=== PATIENT | female | born 1965 | race Caucasian/White ===

== ENCOUNTER 2017-02-20 16:50 | Emergency (ER) | payer BC ==
[~2017-02-20] VITALS: Ht 157.5 cm; Wt 96.3 kg
[2017-02-20 16:54] VITALS: TEMP 36.7; Ht 157.5 cm; Wt 96.3 kg
[2017-02-20 17:02] VITALS: O2SAT 96
--- NOTE | 2017-02-20 17:25 | DIAGNOSTIC IMAGING REPORT ---
CHEST ONE VIEW PORTABLE HISTORY: 51 years-old Female acute Fever/Sepsis COMPARISON: None available TECHNIQUE: Portable upright AP view of the chest FINDINGS: Cardiac silhouette is within normal limits. There is no pneumothorax, pleural effusion or focal airspace consolidation. There is mild right hemidiaphragmatic elevation. The bones are grossly intact. IMPRESSION: No acute cardiopulmonary process. The above report was generated using voice recognition software. It may contain grammatical, syntax or spelling errors. Electronically signed by: Ten Reynolds M.D. 02/20/2017 5:24 PM Dictated Date/Time: 02/20/2017 5:23 PM
[2017-02-20 17:31] LABS: BASO % 0.3 %; BASO ABS # 0.03 K/uL (0-0.2); COMPLETE YES; EOS % 1.6 %; HEMATOCRIT 40.4 % (37-47); IG% 0.2 %; LYMPH % 28.8 %; MEAN CELL VOLUME 91.6 fL (80-100); MEAN CORPUSCULAR HEMOGLOBIN 31.5 pg (25-34); MEAN CORPUSCULAR HGB CONC 34.4 g/dl (32-36); MEAN PLATELET VOLUME 9.5 fL (7.4-10.4); MONO % 8.8 %; NEUT % 60.3 %; PLATELET COUNT 259 K/uL (130-400); RED BLOOD COUNT 4.41 M/uL (4.2-5.4); WHITE BLOOD COUNT 9.02 K/uL (4.8-10.8)
[2017-02-20] MEDS ORDERED: POTA10CA28 PO (17:48)
[2017-02-20] MEDS ORDERED: BUME1TAB PO (17:48)
[2017-02-20] MEDS ORDERED: METO25TA3 PO (17:48)
[2017-02-20] MEDS ORDERED: RIVA1TAB4 PO (17:48)
[2017-02-20] MEDS ORDERED: ESCI1TAB10 PO (17:48)
[2017-02-20] MEDS ORDERED: DOXY-300 PO (17:48)
[2017-02-20 17:53] LABS: ALT/SGPT 15 U/L (12-78); BLOOD UREA NITROGEN 18 mg/dl (7-18); BUN/CREATININE RATIO 17.6 (10-20); CALCIUM 9.5 mg/dl (8.5-10.1); CARBON DIOXIDE 29 mmol/L (21-32); CHLORIDE 103 mmol/L (98-107); GLUCOSE 87 mg/dl (70-99); POTASSIUM 3.1 mmol/L (3.5-5.1); SODIUM 139 mmol/L (136-145)
[2017-02-20 17:58] LABS: ALKALINE PHOSPHATASE 113 U/L (45-117); AST/SGOT 13 U/L (15-37); CKMB/CK RATIO 1.1 (0-3.0)
[2017-02-20 18:01] LABS: PARTIAL THROMBOPLASTIN RATIO 1.1; PROTHROMBIN TIME (PATIENT) 10.5 SECONDS (9.0-12.0)
--- NOTE | 2017-02-20 18:27 | EMERGENCY ROOM VISIT NOTE ---
History Report prepared by Valdez: Basil Conway Under the Supervision of: Dr. Sincere Conklin D.O. First contact with patient: 17:02 Chief Complaint: CHEST PAIN Stated Complaint: CHEST PAIN, LEFT SIDE, HX OF CLOTS History of Present Illness The patient is a 51 year old female who presents to the Emergency Room with complaints of left-sided pressure-like chest pain that began 2 hours ago. She rates her pain a 9/10 in severity. 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 She states that they told her the only way to fix it would be to have open heart surgery, which the patient declined. This makes her short of breath and unable to exceptionally exert herself. Today, the patient's chest pain began with pain in her left arm and left neck as well. She notes hot flashes and shortness of breath at this time. She denies any fevers. This has happened to the patient before. She has a past medical history of factor 5 clotting disorder which caused blood clots in her lung and left leg, so she is currently on Xarelto. Source of History: patient Onset: 2 hours ago Position: chest (left) Symptom Intensity: 9/10 Quality: pressure Timing: constant Associated Symptoms: + neck pain, + SOB, No fevers Note: She is having left arm pain and hot flashes as well. Review of Systems See HPI for pertinent positives & negatives. A total of 10 systems reviewed and were otherwise negative. Past Medical & Surgical Medical Problems: (1) Factor 5 Leiden mutation, heterozygous (2) Myocardial bridge Family History Omitted secondary to the patient's age. Social History Smoking Status: Never Smoker Smokeless Tobacco Use: No Drug Use: none Marital Status: Housing Status: lives with significant other Occupation Status: employed Current/Historical Medications Scheduled Bumetanide (Bumex), 1.5 MG PO QAM Doxycycline (Monohydrate) (Doxycycline), 100 MG PO BID Escitalopram Oxalate (Lexapro), 20 MG PO QAM Metoprolol Succinate (Toprol Xl), 25 MG PO QPM Potassium Chloride (Micro-K Ext Rel), 10 MEQ PO DAILY Rivaroxaban (Xarelto), 20 MG PO QPM Allergies Coded Allergies: Amoxicillin (Unverified Allergy, Unknown, RASH, 02/20/17) Penicillins (Unverified Allergy, Unknown, RASH, 02/20/17) Physical Exam Vital Signs Date Time Temp Pulse Resp B/P (MAP) Pulse Ox O2 Delivery O2 Flow Rate FiO2 02/20/17 17:12 96 Room Air 02/20/17 17:12 78 02/20/17 17:02 96 Room Air 02/20/17 16:54 36.7 78 17 157/90 95 Room Air Physical Exam CONSTITUTIONAL/VITAL SIGNS: Reviewed / noted above. GENERAL: Non-toxic in appearance. INTEGUMENTARY: Warm, dry, and [place]. HEAD: Normocephalic. EYES: without scleral icterus or trauma. ENT/OROPHARYNX: clear and moist. LYMPHADENOPATHY/NECK: Is supple without lymphadenopathy or meningismus. RESPIRATORY: Lungs clear and equal. CARDIOVASCULAR: Regular rate and rhythm. GI/ABDOMEN: Soft and nontender. No organomegaly or pulsatile mass. No rebound or guarding. Normal bowel sounds. EXTREMITIES: Warm and well perfused. BACK: No CVA tenderness. NEUROLOGICAL: Intact without focal deficits. PSYCHIATRIC: normal affect. MUSCULOSKELETAL: Normally developed with good muscle tone. Medical Decision & Procedures ER Provider Diagnostic Interpretation: Radiology results as stated below per my review and radiologist interpretation: CHEST ONE VIEW PORTABLE HISTORY: 51 years-old Female acute Fever/Sepsis COMPARISON: None available TECHNIQUE: Portable upright AP view of the chest FINDINGS: Cardiac silhouette is within normal limits. There is no pneumothorax, pleural effusion or focal airspace consolidation. There is mild right hemidiaphragmatic elevation. The bones are grossly intact. IMPRESSION: No acute cardiopulmonary process. The above report was generated using voice recognition software. It may contain grammatical, syntax or spelling errors. Electronically signed by: Ten Reynolds M.D. 02/20/2017 5:24 PM Dictated Date/Time: 02/20/2017 5:23 PM Laboratory Results 02/20/17 17:20 Red Blood Count 4.41, Mean Corpuscular Volume 91.6, Mean Corpuscular Hemoglobin 31.5, Mean Corpuscular Hemoglobin Concent 34.4, Mean Platelet Volume 9.5, Neutrophils (%) (Auto) 60.3, Lymphocytes (%) (Auto) 28.8, Monocytes (%) (Auto) 8.8, Eosinophils (%) (Auto) 1.6, Basophils (%) (Auto) 0.3, Neutrophils # (Auto) 5.44, Lymphocytes # (Auto) 2.60, Monocytes # (Auto) 0.79, Eosinophils # (Auto) 0.14, Basophils # (Auto) 0.03 02/20/17 17:20 Test 02/20/17 17:20 White Blood Count 9.02 K/uL (4.8-10.8) Red Blood Count 4.41 M/uL (4.2-5.4) Hemoglobin 13.9 g/dL (12.0-16.0) Hematocrit 40.4 % (37-47) Mean Corpuscular Volume 91.6 fL (80-100) Mean Corpuscular Hemoglobin 31.5 pg (25-34) Mean Corpuscular Hemoglobin Concent 34.4 g/dl (32-36) Platelet Count 259 K/uL (130-400) Mean Platelet Volume 9.5 fL (7.4-10.4) Neutrophils (%) (Auto) 60.3 % Lymphocytes (%) (Auto) 28.8 % Monocytes (%) (Auto) 8.8 % Eosinophils (%) (Auto) 1.6 % Basophils (%) (Auto) 0.3 % Neutrophils # (Auto) 5.44 K/uL (1.4-6.5) Lymphocytes # (Auto) 2.60 K/uL (1.2-3.4) Monocytes # (Auto) 0.79 K/uL (0.11-0.59) Eosinophils # (Auto) 0.14 K/uL (0-0.5) Basophils # (Auto) 0.03 K/uL (0-0.2) RDW Standard Deviation 42.7 fL (36.4-46.3) RDW Coefficient of Variation 12.9 % (11.5-14.5) Immature Granulocyte % (Auto) 0.2 % Immature Granulocyte # (Auto) 0.02 K/uL (0.00-0.02) Prothrombin Time 10.5 SECONDS (9.0-12.0) Prothromb Time International Ratio 1.0 (0.9-1.1) Activated Partial Thromboplast Time 28.2 SECONDS (21.0-31.0) Partial Thromboplastin Ratio 1.1 D-Dimer 390 ug/L FEU (0-500) Anion Gap 7.0 mmol/L (3-11) Est Creatinine Clear Calc Drug Dose 72.1 ml/min Estimated GFR () 75.5 Estimated GFR (Non- 65.2 BUN/Creatinine Ratio 17.6 (10-20) Calcium Level 9.5 mg/dl (8.5-10.1) Total Bilirubin 0.2 mg/dl (0.2-1) Direct Bilirubin < 0.1 mg/dl (0-0.2) Aspartate Amino Transf (AST/SGOT) 13 U/L (15-37) Alanine Aminotransferase (ALT/SGPT) 15 U/L (12-78) Alkaline Phosphatase 113 U/L (45-117) Total Creatine Kinase 103 U/L (26-192) Creatine Kinase MB 1.1 ng/ml (0.5-3.6) Creatine Kinase MB Ratio 1.1 (0-3.0) Troponin I < 0.015 ng/ml (0-0.045) Total Protein 7.5 gm/dl (6.4-8.2) Albumin 3.3 gm/dl (3.4-5.0) Lipase 108 U/L (73-393) Laboratory results as stated above per my review. ECG Indication: chest pain Rate (beats per minute): 77 Rhythm: normal sinus Findings: no acute ischemic change, no ectopy ED Course 1702: Previous medical records were reviewed. The patient was evaluated in room B12B. A complete history and physical examination was performed. 1830: On reevaluation, the patient is resting. I discussed the results and findings with the patient. She verbalized agreement of the treatment plan. She was discharged home. Medical Decision Differentials considered include acute myocardial infarction, acute coronary syndrome, myocarditis, pericarditis, pericardial effusions /tamponade, esophageal perforation, thoracic aortic dissection, pulmonary embolism, pneumonia, pneumothorax, pancreatitis, shingles, acute cholecystitis, and perforated abdominal viscus. This is a 51-year-old female who presents to the ED with a chief complaint of left upper chest pain. The patient states that her left arm also feels a little weak. Further details noted above. 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 She reported some associated shortness of breath. Her vital signs are stable. Her exam is normal. Chest x-ray did not show acute disease. CBC, complete metabolic panel, troponin, lipase, d-dimer were all unremarkable/normal. The patient was told the results of the test. She is felt to be stable for discharge and outpatient follow-up. Medication Reconcilliation Current Medication List: was personally reviewed by me Blood Pressure Screening Patient's blood pressure: Elevated blood pressure Blood pressure disposition: Referred to PCP Impression Primary Impression: Non-cardiac chest pain Scribe Attestation The scribe's documentation has been prepared under my direction and personally reviewed by me in its entirety. I confirm that the note above accurately reflects all work, treatment, procedures, and medical decision making performed by me. Departure Information Dispostion Home / Self-Care Referrals Easton Zuñiga M.D. (PCP) Forms Call Back Authorization, HOME CARE DOCUMENTATION FORM, IMPORTANT VISIT INFORMATION Patient Instructions My [facility] Additional Instructions Follow-up with your doctor for further care and evaluation in 1-2 days. Return to the emergency department for worsening or new symptoms or any concerns. You have been examined and treated today on an emergency basis only. This is not a substitute for, or an effort to provide, complete comprehensive medical care. It is impossible to recognize and treat all injuries or illnesses in a single emergency department visit. It is therefore important that you follow up closely with your doctor. Call as soon as possible for an appointment.
[2017-02-20 19:09] VITALS: BP 142/103; PULSE 75; O2SAT 98
== END 2017-02-20 19:10 | disposition home or self-care (01) ==
LOC: C.EDB 16:51
DX: R07.89 Other chest pain (principal); R06.02 Shortness of breath; M54.2 Cervicalgia; Q24.5 Malformation of coronary vessels; Z79.01 Long term (current) use of anticoagulants; Z79.899 Other long term (current) drug therapy

== ENCOUNTER → 2017-09-01 | Outpatient (CLI) | payer BC ==
[~2017-09-01] MED LIST: BUME1TAB PO; DOXY-300 PO; ESCI1TAB10 PO; METO25TA4 PO; POTA10CA28 PO; RIVA1TAB4 PO
[2017-09-01 12:24] LABS: BASO % 0.6 %; BASO ABS # 0.05 K/uL (0-0.2); EOS % 3.3 %; IG# 0.02 K/uL (0.00-0.02); LYMPH % 32.6 %; LYMPH ABS # 2.93 K/uL (1.2-3.4); MEAN CELL VOLUME 92.2 fL (80-100); MEAN CORPUSCULAR HEMOGLOBIN 31.4 pg (25-34); MEAN CORPUSCULAR HGB CONC 34.1 g/dl (32-36); MEAN PLATELET VOLUME 9.7 fL (7.4-10.4); MONO % 7.2 %; MONO ABS # 0.65 K/uL (0.11-0.59); NEUT % 56.1 %; NEUT ABS # 5.03 K/uL (1.4-6.5); PLATELET COUNT 253 K/uL (130-400); RED CELL DISTRIBUTION WIDTH CV 12.9 % (11.5-14.5); WHITE BLOOD COUNT 8.98 K/uL (4.8-10.8)
[2017-09-01 16:14] LABS: ALBUMIN 3.2 gm/dl (3.4-5.0); ALT/SGPT 25 U/L (12-78); BLOOD UREA NITROGEN 9 mg/dl (7-18); CALCIUM 9.1 mg/dl (8.5-10.1); CARBON DIOXIDE 27 mmol/L (21-32); CHOLESTEROL 179 mg/dl (0-200); CREATININE 0.99 mg/dl (0.60-1.20); GLUCOSE 98 mg/dl (70-99); POTASSIUM 3.4 mmol/L (3.5-5.1); SODIUM 139 mmol/L (136-145)
[2017-09-01 16:16] LABS: ALKALINE PHOSPHATASE 91 U/L (45-117); AST/SGOT 18 U/L (15-37); LDL CHOLESTEROL CALCULATED 101 mg/dl; TOTAL PROTEIN 7.4 gm/dl (6.4-8.2)
== END | disposition home or self-care (01) ==
LOC: C.LABMFLN 07:05
PROVIDERS: ATTEND Family Medicine
DX: I82.4Z2 Acute embolism and thrombosis of unspecified deep veins of left distal lower extremity (principal); I10 Essential (primary) hypertension

== ENCOUNTER → 2017-09-23 | Outpatient (CLI) | payer BC | END | disposition home or self-care (01) | LOC: C.LABMFLN 07:18 | PROVIDERS: ATTEND Family Medicine | DX: E87.6 Hypokalemia (principal) ==

== ENCOUNTER → 2017-10-02 | Outpatient (CLI) | payer BC | END | disposition home or self-care (01) | LOC: C.LAB 18:04 | PROVIDERS: ATTEND Family Medicine | DX: E87.6 Hypokalemia (principal) ==

== ENCOUNTER → 2017-10-23 | Outpatient (CLI) | payer BC ==
[2017-10-23 19:49] LABS: POTASSIUM 3.4 mmol/L (3.5-5.1)
== END | disposition home or self-care (01) ==
LOC: C.LAB 17:52
PROVIDERS: ATTEND Family Medicine
DX: E87.6 Hypokalemia (principal)